=== PATIENT | female | born 1985 | race Asian ===

== ENCOUNTER 2016-11-28 08:31 | Emergency (ER) | payer OTHER ==
[~2016-11-28] VITALS: Ht 157.5 cm; Wt 79.8 kg
[2016-11-28 08:47] VITALS: BP 164/102; PULSE 107; RESP 16; TEMP 97.4; O2SAT 97
--- NOTE | 2016-11-28 08:53 | NUR ---
Patient to ER bed 2 to gown for evaluation. Side rails up. Report given to Dane PEÑA.
--- NOTE | 2016-11-28 08:55 | NUR ---
ER at bedside examining patient.
--- NOTE | 2016-11-28 09:00 | NUR ---
Pt AAOx4 presents to ED c/o bump to back of head x 1 week. Affected area tender to touch. Per MD exam not ready for I&D. Pt h/o HTN,NIDDM. Pt to be discharged w/ABX and instructions for follow up.
[2016-11-28 09:05] VITALS: BP 164/102; PULSE 107; RESP 16; TEMP 97.4; O2SAT 97
--- NOTE | 2016-11-28 09:11 | NUR ---
Patient given written and verbal discharge instructions and verbalizes understanding. ER MD discussed with patient the results and treatment provided. Patient in stable condition. ID arm band removed. Rx of Bactrin, Clindamycin given. Patient educated on pain management and to follow up with PMD. Pain Scale 0/10. Opportunity for questions provided and answered.
== END 2016-11-28 09:12 | disposition home or self-care (01) ==
LOC: SED 08:31
DX: L02.11 Cutaneous abscess of neck (principal); E11.65 Type 2 diabetes mellitus with hyperglycemia; Z88.0 Allergy status to penicillin
CPT/HCPCS: 99283